=== PATIENT | female | born 1950 | race Caucasian/White ===

== ENCOUNTER 2016-09-30 10:52 | Inpatient (IN) ==
[2016-09-30] MEDS ORDERED: SODIUM CHLORIDE 0.9% 500 ML IV STA (11:14)
[2016-09-30] MEDS ORDERED: ONDANSETRON 4 MG/2 ML VIAL IV STA (11:14)
[2016-09-30] MEDS ORDERED: ASPIRIN 325 MG TABLET PO STA (11:14)
[2016-09-30] MEDS ORDERED: MECLIZINE 25 MG TABLET PO STA (11:17)
--- NOTE | 2016-09-30 11:17 | Emergency Department Note ---
Ahsan Harmon Brooke, am scribing for, and in the presence of, Kavon Kelley MD 11 :15. Warren Harmon Charles R, MD, personally performed the services described in this documentation, ascribed by Noemi Foreman in my presence, and it is both accurate and complete . Arrival - Arrival Chief Complaint: Neuro ED Nursing Triage Note: pt was in the shower about 0900 this am and felt like lt leg was not going to hold her up and lt facial numbness and dizzy Mode of Arrival: Stretcher Limitations: No Limitations Source: Patient, EMS, RN Notes Reviewed Time Seen by Provider: 09/30/16 11:04 - History of Present Illness HPI Narrative: Patient is a 65 year old female who presents to the ED with c/o numbness/ tingling to left side of face, lightheadedness, and dizziness that started, suddenly, while in the shower around 0900 this morning. Patient says the numbness/tingling started in her left jaw and then went up into her temporal. She says she had a "pressure" feeling in the temporal but denies having a headache. She denies having any numbness/tingling to her arms or legs but says she had a "strange feeling" in her legs, earlier, but says they feel "fine" now. Patient says she does not feel confused and denies having any visual disturbances. She says she has never experienced "this feeling" in the past. She says she was not outside, in the heat, yesterday and says her urine is not dark. She says she did pull a tick off of the left side of her head but she says it was not attached. I looked at her head and there is no bite lacy. Patient has PMHx of "slow heart," GERD, and osteoporosis. Onset (ago): hour(s) (2) Review of System - Review of System 12 point system: reviewed and no additional remarkable complaints except as stated - Review of System Constitutional: Absent: fever Eyes: Absent: vision change Respiratory: Absent: respiratory distress Skin: Absent: rash Neurological: Present: other (numbness/tingling left side of face that started in jaw and radiated up into temporal. "Pressure" to left temporal. Dizziness and lightheadedness.). Absent: headache Medical,Surgical,& Family Hx - Medical History Cardio: History of: Cardiovascular Problems (slow heart) Gastrointestinal: History of: GERD Musculoskeletal: History of: Osteoporosis - Social History Smoking Status: Never smoker Frequency of Alcohol Use: None Type of Drug Use: None Exam Vital Signs: Vital Signs Temperature 97.1 F L 09/30/16 10:55 Pulse Rate 57 L 09/30/16 10:55 Respiratory Rate 18 09/30/16 10:55 Blood Pressure 147/80 09/30/16 10:55 O2 Sat by Pulse Oximetry 100 09/30/16 10:55 - General General appearance: alert, in no apparent distress - Head Head exam: Present: atraumatic, normocephalic - Eye Eye exam: Present: nystagmus (Horizontal that is faster when sitting up.) - ENT ENT exam: Present: normal exam - Neck Neck exam: Present: normal inspection - Chest Chest inspection: Present: normal inspection, symmetric chest wall rise - Respiratory Respiratory exam: Present: normal lung sounds bilaterally - Cardiovascular Cardiovascular exam: Present: normal rhythm, bradycardia (normal for Patient), normal heart sounds - Abdominal Exam Abdominal exam: Present: soft, normal bowel sounds. Absent: distention, tenderness - Extremities Exam Extremities exam: Present: normal inspection - Back Exam Back exam: Present: normal inspection - Neurological Exam Neurological exam: Present: alert, oriented X3, CN II-XII intact, other (Weird sensation to left mid jaw to hairline. No facial droop. No signs of CVA. Globally weak.) - Psychiatric Psychiatric exam: Present: normal affect, normal mood - Skin Skin exam: Present: warm, dry, intact, normal color Course - Consultations Consultation #1: Hospitalist will admit patient Time: 13:05 Results - Labs CBC & BMP: 09/30/16 11:51 09/30/16 11:51 Lab Results: I have reviewed the patients labs Labs: Laboratory Tests 09/30/16 09/30/16 09/30/16 11:48 11:48 11:51 WBC 4.6 RBC 4.34 Hgb 13.4 Hct 39.3 MCV 90.6 MCH 31 MCHC 34.1 RDW 13.7 Plt Count 147 MPV 12.0 Neut % (Auto) 54.7 Lymph % (Auto) 32.4 [place] % (Auto) 10.5 Eos % (Auto) 1.8 Baso % (Auto) 0.4 Neut # (Auto) 2.5 Lymph # (Auto) 1.5 [place] # (Auto) 0.5 Eos # (Auto) 0.1 Baso # (Auto) 0.0 Immature Gran % 0.2 Nucleated RBC % 0.0 Immature Gran # 0.01 Nucleated RBCs # 0.00 Immature Plt Fraction 0.0 INR PT Patient/Control Mix Circ Anticoag PTT Sodium Potassium Chloride Carbon Dioxide Anion Gap BUN Creatinine GFR Calculation BUN/Creatinine Ratio Glucose Calculated Osmolality Calcium Total Bilirubin AST ALT Alkaline Phosphatase Troponin I Total Protein Albumin Globulin Albumin/Globulin Ratio Urine Color Straw Urine Appearance Clear Urine pH 6.0 Ur Specific [place] 1.008 Urine Protein Negative Urine Glucose (UA) Negative Urine Ketones Negative Urine Blood Negative Urine Nitrate Negative Urine Bilirubin Negative Urine Urobilinogen < 2.0 H Urine Leukocytes Moderate H Urine RBC 4 Urine WBC 8 Ur Squamous Epith Cells Occasional Urine Mucus Occasional Ur Culture Indicated? Results to follow Urine Opiates Screen Negative Ur Barbiturates Screen Negative Ur Phencyclidine Scrn Negative U Amphetamine/Methamph Negative U Benzodiazepines Scrn Negative U Cocaine Metab Screen Negative U Cannabinoids Screen Negative Serum Alcohol 09/30/16 09/30/16 11:51 11:51 WBC RBC Hgb Hct MCV MCH MCHC RDW Plt Count MPV Neut % (Auto) Lymph % (Auto) [place] % (Auto) Eos % (Auto) Baso % (Auto) Neut # (Auto) Lymph # (Auto) [place] # (Auto) Eos # (Auto) Baso # (Auto) Immature Gran % Nucleated RBC % Immature Gran # Nucleated RBCs # Immature Plt Fraction INR 1.0 PT Patient/Control Mix 10.4 Circ Anticoag PTT 25.2 Sodium 140 Potassium 4.1 Chloride 109 H Carbon Dioxide 24 Anion Gap 11.1 BUN 18 Creatinine 0.70 GFR Calculation 98 BUN/Creatinine Ratio 25.00 H Glucose 102 Calculated Osmolality 280.4 Calcium 8.9 Total Bilirubin 0.50 AST 14 ALT 18 Alkaline Phosphatase 63 Troponin I < 0.015 Total Protein 6.1 L Albumin 3.4 Globulin 2.7 Albumin/Globulin Ratio 1.2 Urine Color Urine Appearance Urine pH Ur Specific [place] Urine Protein Urine Glucose (UA) Urine Ketones Urine Blood Urine Nitrate Urine Bilirubin Urine Urobilinogen Urine Leukocytes Urine RBC Urine WBC Ur Squamous Epith Cells Urine Mucus Ur Culture Indicated? Urine Opiates Screen Ur Barbiturates Screen Ur Phencyclidine Scrn U Amphetamine/Methamph U Benzodiazepines Scrn U Cocaine Metab Screen U Cannabinoids Screen Serum Alcohol < 15 L - Diagnostic Findings Procedure: Chest x-ray: report reviewed by me (Mild cardiomegaly.), CT: report reviewed by me (CT head/brain wo con: No acute intracranial process.) Disposition Clinical Impression: Transient cerebral ischemia, UTI (urinary tract infection), Vertigo Case discussed with: patient, patient's family Disposition: Still a Patient Condition: Stable Time of Disposition: 13:05 NIH Stroke Score - Stroke Score Initial Assessment Level of Consciousness: Alert Level of Consciousness Questions: Answers Both Correctly Level of Consciousness Commands: Obeys Both Correctly Best Gaze: Normal Visual [place]: No Visual Loss Facial Palsy: Normal Motor - Right Arm: No Drift Motor - Left Arm: No Drift Motor - Right Leg: No Drift Motor - Left Leg: No Drift Limb Ataxia: Absent Sensory (Pin [place]rick): Partial Loss Best Language: Normal Dysarthria: Normal Extinction / Inattention (Neglect): No Neglect NIH Stroke Score: 1
[2016-09-30] MEDS ORDERED: ONDANSETRON 4 MG/2 ML VIAL ONE (11:36)
[2016-09-30] MEDS ORDERED: MECLIZINE 25 MG TABLET ONE (11:36)
[2016-09-30] MEDS ORDERED: ASPIRIN 325 MG TABLET ONE (11:36)
--- NOTE | 2016-09-30 11:40 | XRay Report ---
Portable chest. Indication: Cardiomegaly. The heart is mildly enlarged with left ventricular hypertrophy. There is calcific plaque present within the aortic knob. The pulmonary vasculature is normal. The lung carmichael are clear. Osseous structures are unremarkable. Impression: Mild cardiomegaly. PROCEDURE INTERPRETED AT [facility] DEPARTMENT OF RADIOLOGY Final Report Signed by: Dr. Josselyn Davalos
--- NOTE | 2016-09-30 11:43 | CT Report ---
History: Hemiparesis Date: 09/30/2016 Study: CT head without contrast Comparison exam: No previous head CT available The exam was performed on an outpatient basis through the emergency room. Transaxial CT sections were obtained through the head without IV contrast. Total DLP measures 1012.1 mGy*cm. This CT exam was performed using one or more the following dose reduction techniques: Automated exposure control, adjustment of the MA and/or KV according to patient size, or use of iterative reconstruction technique. The ventricles are midline in position without evidence of hydrocephalus. There is no mass or parenchymal hemorrhage. There is no gross CT evidence of acute cortical stroke. There is no extra-axial hematoma. There is no acute abnormality of the calvarium. The partially visualized paranasal sinuses and mastoid air cells are clear. Impression: No acute intracranial process PROCEDURE INTERPRETED AT [facility] DEPARTMENT OF RADIOLOGY Final Report Signed by: Dr. Luz Peterson
[2016-09-30 11:53] LABS: Basophils % 0.4 % (0.0-0.8); Eosinophils # 0.1 10*3/uL (0.0-0.87); Eosinophils % 1.8 % (0.00-10.9); Hematocrit 39.3 VOL% (35.7-47.0); Hemoglobin 13.4 GM/DL (12.0-16.0); Immature Granulocytes % 0.2 %; Immature Granulocytes Absolute 0.01 #; Lymphocytes # 1.5 10*3/uL (1.4-4.0); Lymphocytes % 32.4 % (21.3-54.2); Mean Corpuscular HGB Conc 34.1 GM/DL (32-36); Mean Corpuscular Hemoglobin 31 PG (27-34); Mean Corpuscular Volume 90.6 FL (87-102); Monocytes # 0.5 10*3/uL (0.11-0.8); Monocytes % 10.5 % (1.7-12.7); Neutrophils # 2.5 10*3/uL (1.4-7.4); Neutrophils % 54.7 % (38.7-73.9); Platelet Count 147 T/CUMM (130-400); Red Blood Count 4.34 MC/CUMM (3.8-5.5); Red Cell Distribution Width 13.7 % (9.3-17.3); White Blood Count 4.6 T/CUMM (4-12)
[2016-09-30 12:11] LABS: PT Patient Result 10.4 SECS; Partial Thromboplastin Time 25.2 SECS (0-40)
[2016-09-30 12:11] LABS: Apearance,Urine CLEAR (Clear); Bilirubin,Urine Negative (Negative); Blood, Urine Negative (Negative); Glucose,Urine (UA) Negative (Negative); Ketones,Urine Negative (Negative); Mucus,Urine Occasional /LPF (Occasional); Nitrite,Urine Negative (Negative); Protein,Urine Negative; RBC,Urine 4 /HPF (0-4); Squamous Epithelial Cell,Urine Occasional /HPF (0-10); Urine Color Straw (Yellow); Urine Specific Gravity 1.008 (1.001-1.035); Urine Urobilinogen < 2.0 EU/DL (0.2-1.0); WBC,Urine 8 /HPF (0-6)
[2016-09-30 12:18] LABS: Barbiturates Screen,Urine Negative (Negative); Benzodiazepines Screen,Urine Negative (Negative); Cannabinoid Screen,Urine Negative (Negative); Opiate Screen,Urine Negative (Negative); Phencyclidine Screen,Urine Negative (Negative)
[2016-09-30 12:19] LABS: Alanine Aminotransferase 18 U/L (13-56); Albumin 3.4 G/DL (3.4-5.0); Alkaline Phosphatase 63 U/L (45-117); Aspartate Amino Transferase 14 U/L (0-37); Blood Urea Nitrogen 18 MG/DL (7-18); Calcium 8.9 MG/DL (8.5-10.1); Glucose 102 MG/DL (74-106); Osmolality,Calculated 280.4 MOS/KG (273-304); Potassium 4.1 MMOL/L (3.5-5.1); Sodium 140 MMOL/L (136-145); Total Protein 6.1 G/DL (6.4-8.3); Troponin I Only < 0.015 NG/ML (0.00-0.045)
[2016-09-30] MEDS ORDERED: cefTRIAXone 1,000 MG in SODIUM CHLORIDE 0.9% 100 ML IV STA (12:54)
--- NOTE | 2016-09-30 13:07 | EKG Report ---
Stationary ECG Study [facility] ER Test Date: 09/30/2016 1:05:30 PM Pat Name: RAVEN AKINS Department: Room: Gender: F Junior Data Analyst: : 1950 Requested by: Kavon Phillips Order Number: [id number] Reading MD: ARIEL YU Intervals [place] Rate: 51 P: 50 RI: 135 QRS: 0 QRSD: 84 T: 7 QT: 438 QTc: 413 Interpretive Statements SINUS BRADYCARDIA LOW QRS VOLTAGE IN PRECORDIAL LEADS POSSIBLE ANTERIOR MYOCARDIAL INFARCTION, PROBABLY OLD INFERIOR MYOCARDIAL INFARCTION, PROBABLY OLD Electronically Signed On 09-30-16 15:54:33 CDT by ARIEL YU [email or web address]
[2016-09-30] MEDS ORDERED: LABETALOL 20 MG/4 ML SYRINGE IV PRN (13:37)
[2016-09-30] MEDS ORDERED: cefTRIAXone 1,000 MG VIAL ONE (13:51)
[2016-09-30] MEDS ORDERED: guaiFENesin/DM ER 600-30 MG TABLET PO PRN (13:56)
[2016-09-30] MEDS ORDERED: DOCUSATE SODIUM 100 MG CAPSULE PO PRN (13:56)
[2016-09-30] MEDS ORDERED: ACETAMINOPHEN 325 MG TABLET PO PRN ×2 (13:56)
[2016-09-30] MEDS ORDERED: ONDANSETRON 4 MG/2 ML VIAL IV PRN (13:56)
[2016-09-30] MEDS ORDERED: ZALEPLON 5 MG CAPSULE PO PRN (13:56)
[2016-09-30] MEDS ORDERED: MORPHINE 2 MG/1 ML SYRINGE IV PRN (13:56)
[2016-09-30] MEDS ORDERED: diphenhydrAMINE CAP 25 MG CAPSULE PO PRN (13:56)
--- NOTE | 2016-09-30 14:06 | Hospitalist History & Physical ---
Assessment and Plan - Time spent with patient Time spent with patient: Greater than 30 minutes (1) TIA (transient ischemic attack) Status: Acute Assessment and plan: 65-year-old white female with history of GERD, low back pain, gastric bypass admitted by the hospitalist service from the emergency department with TIA/ stroke symptoms and UTI. Patient's numbness on her left face and left leg have resolved but patient continues to have symptoms of vertigo and cannot stand up due to this. Patient will be admitted and stroke protocol has been initiated. Will get an echo, carotid ultrasound, TSH, lipid panel, MRI of the brain. Will consult Dr. Galloway from neurology for evaluation. We will go ahead and get PT and OT to evaluate. Do not feel patient needs speech at this time. Patient will also be started on Rocephin for her urinary tract infection. She is asymptomatic. Dr. Rivera we will see and examine patient and further recommendations to follow. Current Visit: Yes (2) UTI (urinary tract infection) Status: Acute Current Visit: Yes (3) Vertigo Status: Acute Current Visit: Yes History of Present Illness Chief complaint: Dizziness History of present illness: Ms. Brantley is a 65 year old white female with history of GERD, osteoporosis, low back pain, gastric bypass presenting to the ED with a 5 hour history of acute onset of dizziness, left facial numbness and left lower extremity numbness. Patient states she was in her normal state of health until about 9:00 this morning when she started to feel dizzy. She states her head began to swim and she felt like she was going to fall down. She noted some numbness on her left face and some pressure in her gnosticism. She states she sat down and it subsided but then when she went to walk she had heaviness and numbness of her left lower extremity. Patient states that she felt like she could not control her leg. She states the numbness in the face and leg have resolved but she is still dizzy intermittently. She is afebrile, bradycardic with her pulse in the mid 50s, and mildly hypertensive at 147/80. Her CBC and CMP are normal. Her UA does show a moderate UTI and drug screen is negative. Chest x-ray is negative, CT scan with no acute intracranial process, her EKG showing sinus bradycardia. Upon exam, patient is awake and alert. Her neuro exam is normal and equal bilaterally. Her extraocular movements are intact and her tongue is midline. Patient could not stand though as soon as her head came up off the pillow she became dizzy and got nauseated. After discussion with Dr. Kelley the ED physician and Dr. Rivera the admitting hospitalist, it was agreed patient would be admitted for further evaluation and treatment. Patient's medications will be reconciled once entered into the system and patient is a full code. Medical,Surgical,& Family Hx - Medical History Cardio: History of: Cardiovascular Problems (slow heart) Gastrointestinal: History of: GERD Musculoskeletal: History of: Osteoporosis - Surgical History Abdominal Surgeries: Surgical HX of: Appendectomy, Cholecystectomy - Family History Family History: Reports;: Family Heart Disease - Social History Smoking Status: Never smoker Frequency of Alcohol Use: None Type of Drug Use: None Marital Status: Single Lives With:: Alone Functional capacity: independent ambulation Review of systems: A complete 10 system review of systems was obtained and pertinent positives and negatives per HPI Exam - Constitutional Vitals: Period Temp Pulse Resp BP Sys/Gibbons Pulse Ox Last 24 Hr 97.1 F-97.1 F 57-57 18-18 147-147/80-80 100 Exam: Constitutional System: No distress. No tremulousness. Head: Normocephalic, atraumatic. Ears, Nose and Throat System: No evidence of Otitis or Mastoiditis. No epistaxis or discharge, tongue midline Eyes System: Pupils equal, round, and reactive. Extraocular muscles intact. No nystagmus Neck: Supple, without adenopathy, No jugular venous distention. No thyromegaly, neck mass, or prior surgery apparent. Respiratory System: Chest clear to auscultation. Cardiovascular System: Heart with bradycardic rate and rhythm. No murmur. GI System: Abdomen soft, nontender. Normo active bowel sounds present. Musculoskeletal System: limbs with no pedal edema. Full distal pulses, normal sensation bilaterally upper and lower extremities, normal motor bilaterally upper and lower extremities, strength equal bilaterally 5/5 lower extremities but upper extremity equal bilaterally at 4/5 Neurological System: No discernable sensory deficit. No aphasia, could not test in standing due to dizziness and nausea Psychiatric System: Conversation is rational Results - Labs CBC & BMP: 09/30/16 11:51 09/30/16 11:51 Lab Results: I have reviewed the past 24 hour labs - EKG EKG results: sinus rhythm EKG shows: bradycardia - Diagnostic Findings Procedure: Chest x-ray: report reviewed by me (Mild cardiomegaly), CT: report reviewed by me (CT the head shows no acute intracranial process)
[2016-09-30 14:16] LABS: Risk Ratio 3.76; VLDL CHOLESTEROL 20.6 MG/DL
--- NOTE | 2016-09-30 14:35 | ECHO Report ---
Sondra Brantley Exam Date: 09/30/2016 14:08 Referring Physician: Technologist: Age: 65 Ht (in): Wt (lb): Gender: F Exam Location: [facility] Echo Indications: BP: / HR: Rhythm: Sinus Technical Quality: Good IMPRESSIONS The overall ejection fraction is 60% with no regional wall motion abnormality. Diastolic parameters are most consistent with grade 1 diastolic dysfunction or impaired relaxation. Mild right atrial and right ventricular enlargement MEASUREMENTS (Male / Female) Normal Values 2D ECHO LV Diastolic Diameter PLAX 4.2 cm 4.2 - 5.9 / 3.9 - 5.3 cm LV Systolic Diameter PLAX 2.0 cm LV Fractional Shortening PLAX 50.7 % IVS Diastolic Thickness 0.8 cm 0.6 - 1.0 / 0.6 - 0.9 cm LVPW Diastolic Thickness 0.9 cm 0.6 - 1.0 / 0.6 - 0.9 cm Aortic Root Diameter 2.7 cm LA Systolic Diameter LX 3.5 cm 3.0 - 4.0 / 2.7 - 3.8 cm FINDINGS Left Ventricle The overall ejection fraction is 60% with no regional wall motion abnormality. Diastolic parameters are most consistent with grade 1 diastolic dysfunction or impaired relaxation Right Ventricle Right ventricular cavity slightly enlarged Right Atrium Right atrium slightly enlarged Left Atrium Left atrium is normal Mitral Valve Mitral valve is normal Aortic Valve Aortic valve is normal there is no stenosis or regurgitation Tricuspid Valve Tricuspid valve is normal. There is no measurable tricuspid regurgitant velocity Pulmonic Valve Pulmonic valve is normal Pericardium Pericardium is unremarkable and there is no pericardial effusion Aorta Visualized portions thoracic aorta is normal. Vandana Mendoza (Electronically Signed) Final Date: 30 September 2016 14:34
--- NOTE | 2016-09-30 15:09 | Ultrasound Report ---
CAROTID ULTRASOUND Comparison: Dizziness. Facial and leg numbness, side not specified. . Findings: Grayscale, color Doppler and pulsed Doppler interrogation of the carotid and vertebral arteries performed. Severity of stenosis based on flow velocity measurements using NASCET criteria. Ultrasound images are captured and stored. Distal right ICA diameter: 4.3 mm Distal left ICA diameter: 5.0 mm Peak systolic flow velocities in centimeters per second are as follows: Right: CCA: 66 Proximal ICA: 67 Distal ICA: 81 ICA/CCA ratio: 1.2 Left: CCA: 77 Proximal ICA: 96 Distal ICA: Obscured ICA/CCA ratio: 1.2 External carotid arteries: Both are patent with antegrade flow. Vertebral arteries: Both are patent with antegrade flow. Grayscale and color Doppler images: Only minimal focal plaque deposition identified, with normal color Doppler flow present. Pulse Doppler waveform interrogation: No significant spectral broadening. Impression: No hemodynamically significant stenosis of either ICA origin. PROCEDURE INTERPRETED AT [facility] DEPARTMENT OF RADIOLOGY Final Report Signed by: Ryan Lam M.D.
--- NOTE | 2016-09-30 17:26 | Magnetic Resonance Report ---
History: Numbness and tingling left face. Dizziness Date: 09/30/2016 Study: MRI head without contrast Comparison exam: No previous MRI head The brain was imaged in 3 planes on the 1.5 Meryl magnet without IV contrast, to include FLAIR, diffusion, T2, gradient echo, and T1-weighted images. There is no Chiari I malformation. There is no gross pituitary mass. There is no evidence of acute ischemia on the diffusion sequence. There is no mass affect or parenchymal hemorrhage. There is a small amount of patchy increased FLAIR and T2 signal in the periventricular white matter without mass effect compatible with changes of small vessel disease. There is a normal flow void in the the superior sagittal sinus. There is no gross flow abnormality in the [place] area. There is no obvious cerebellopontine angle mass. Impression: No evidence of acute ischemia or parenchymal hemorrhage. Chronic periventricular small vessel disease PROCEDURE INTERPRETED AT [facility] DEPARTMENT OF RADIOLOGY Final Report Signed by: Dr. Luz Peterson
[2016-09-30] MEDS: SODIUM CHLORIDE 0.9% 1,000 ML IV SCH (17:42)
[2016-09-30] MEDS: PANTOPRAZOLE 40 MG TABLET PO SCH (17:43)
[2016-10-01] MEDS: SODIUM CHLORIDE 0.9% 1,000 ML IV SCH ×3 (00:07→15:43)
[2016-10-01 06:26] LABS: Basophils % 0.5 % (0.0-0.8); Eosinophils # 0.2 10*3/uL (0.0-0.87); Eosinophils % 3.9 % (0.00-10.9); Hematocrit 37.7 VOL% (35.7-47.0); Hemoglobin 12.6 GM/DL (12.0-16.0); Immature Granulocytes % 0.2 %; Immature Granulocytes Absolute 0.01 #; Lymphocytes # 1.5 10*3/uL (1.4-4.0); Lymphocytes % 37.5 % (21.3-54.2); Mean Corpuscular HGB Conc 33.4 GM/DL (32-36); Mean Corpuscular Hemoglobin 31 PG (27-34); Mean Platelet Volume 11.9 FL (9.6-12.0); Monocytes # 0.4 10*3/uL (0.11-0.8); Monocytes % 9.1 % (1.7-12.7); Neutrophils % 48.8 % (38.7-73.9); Platelet Count 140 T/CUMM (130-400); Red Cell Distribution Width 13.8 % (9.3-17.3); White Blood Count 4.1 T/CUMM (4-12)
[2016-10-01 07:00] LABS: Calcium 8.1 MG/DL (8.5-10.1); Osmolality,Calculated 289.6 MOS/KG (273-304)
[2016-10-01] MEDS: PANTOPRAZOLE 40 MG TABLET PO SCH (09:29)
--- NOTE | 2016-10-01 11:50 | Hospitalist Progress Note ---
<Keiry Ellis - Last Filed: 10/01/16 11:42> Assessment and Plan - Time spent with patient Time spent with patient: Less than 30 minutes (1) TIA (transient ischemic attack) Status: Acute Assessment and plan: Patient denies any further symptoms or weaknesses. She verbalized able to ambulate to the bathroom without any problems. Smile was equal without any noted drooping to face or eyes, no tongue deviation noted. She denies any numbness, dizziness, SOB, or difficulty with eating or swallowing. Carotid showed No hemodynamically significant stenosis of either ICA origin. MRI: No evidence of acute ischemia or parenchymal hemorrhage; chronic periventricular small vessel disease. Echo: IMPRESSIONS The overall ejection fraction is 60% with no regional wall motion abnormality. Diastolic parameters are most consistent with grade 1 diastolic dysfunction or impaired relaxation. Mild right atrial and right ventricular enlargement. Neurology was consulted and appreciate any further recommendations with care. Current Visit: Yes (2) UTI (urinary tract infection) Status: Acute Assessment and plan: Continue Rocephin. Will DC maintenance fluids(BUN 14 and Creatinine 0.70). Awaiting final urine culture. Will repeat a.m. labs. Current Visit: Yes (3) Hypercholesteremia Status: Acute Assessment and plan: Slight elevation of Cholesterol 233. triglycerides 103; LDL 141.0; HDL 62. Current Visit: Yes Hospitalist: Subjective Interval history: Ms Brantley was seen and chart reviewed. She reports feeling better this morning. She reports able to ambulate to the bathroom without any problems. Face and extremities continues to be symmetrical. She denies any weakness or numbness to extremities. She denies chest pain, shortness of breath, fever, chills, or dizziness. Exam - Constitutional Vitals: Period Temp Pulse Resp BP Sys/Gibbons Pulse Ox Last 24 Hr 97.1 F-98.8 F 51-56 14-22 111-158/63-89 97-98 General appearance: normal weight - Head Head exam: Present: normal inspection - Eye Eye exam: Present: EOMI Pupils: Present: ROBERT - ENT ENT exam: Present: normal exam, other (no noted droop to either side of face; speech is clear; able to swallow without any discomfort; denies getting choked when eating) - Neck Neck exam: Present: normal inspection - Respiratory Respiratory exam: Present: clear to auscultation bilaterally. Absent: rhonchi, stridor, wheezes - Cardiovascular Cardiovascular exam: Present: regular rate and rhythm - GI/Abdominal GI/Abdominal exam: Present: normal bowel sounds, soft. Absent: tenderness, rebound - Extremities Exam Extremities exam: Present: normal inspection, full ROM. Absent: edema - Neurological Exam Neurological exam: Present: alert, oriented X3, CN II-XII intact - Psychiatric Psychiatric exam: Present: normal affect, normal mood. Absent: agitated, anxious - Skin Skin exam: Present: normal color, warm, dry Results - Labs CBC & BMP: 10/01/16 06:13 10/01/16 06:13 Lab Results: I have reviewed the past 24 hour labs <Betty Leavitt - Last Filed: 10/01/16 14:07> Hospitalist: Subjective Interval history: Patient seen, she states dizziness has improved.She feels much better. Hopefully , she will go home in am. We will start Lipitor. Exam - Constitutional Vitals: Period Temp Pulse Resp BP Sys/Gibbons Pulse Ox Last 24 Hr 97.1 F-98.8 F 51-56 - 111-158/63-85 96-98 Results - Labs CBC & BMP: 10/01/16 06:13 10/01/16 06:13
[2016-10-01] MEDS: cefTRIAXone 1,000 MG in SODIUM CHLORIDE 0.9% 100 ML IV SCH (14:00)
--- NOTE | 2016-10-01 14:52 | Neurology Consult Note ---
History of Present Illness History of present illness: Ms. Brantley is a 65 year old right-handed white lady with history of GERD, osteoporosis, low back pain, gastric bypass presenting to the ED with a 5 hour history of acute onset of dizziness. Patient reported that somewhat whole room was spinning around her. She has some nausea but no vomiting. She has never had any similar symptoms before. No history of stroke. She has been taking aspirin every day. She is doing fine now. No more symptoms reported. MRI of the brain reveals no acute abnormalities. Carotid ultrasound is unremarkable. Cholesterol is still slightly high. Echo looks okay Home Medications Medication Instructions Recorded Confirmed Type Methocarbamol Tab [Robaxin Tab] 750 mg TID 09/30/16 09/30/16 History Ranitidine Tab [Zantac Tab] 150 mg DAILY 09/30/16 09/30/16 History Tizanidine HCl 2 mg BEDTIME PRN 09/30/16 09/30/16 History Allergies Allergy/AdvReac Type Severity Reaction Status Date / Time Penicillins Allergy Verified 09/30/16 15:14 12 point system: reviewed and no additional remarkable complaints except as stated Medical,Surgical,& Family Hx - Medical History Cardio: History of: Cardiovascular Problems (slow heart) Psychological: No history of: Anxiety Disorders, ADHD, Behavior Problems, Bipolar Disorder, Depression, Previous Suicide Attempt, Psychiatric/Substance Abuse Tx, Schizophrenia, Violent Behavior, Psychiatric Problems Gastrointestinal: History of: GERD Musculoskeletal: History of: Osteoporosis - Surgical History Abdominal Surgeries: Surgical HX of: Appendectomy, Cholecystectomy, Gastric Bypass Surgery Reproductive Surgeries: Surgical HX of;: Hysterectomy - Family History Family History: Reports;: Family Heart Disease - Social History Smoking Status: Never smoker Frequency of Alcohol Use: None Type of Drug Use: None Exam - Constitutional Vitals: Period Temp Pulse Resp BP Sys/Gibbons Pulse Ox Last 24 Hr 97.1 F-98.8 F 51-56 16-22 111-158/63-85 96-98 Exam: GENERAL: Patient is in no acute distress. NECK: Neck is supple. There is no JVD. No carotid bruits present. No thyroid masses. CVS: First and second heart sounds are normal. There is no S3 present. Regular rate and rhythm. RESPIRATORY: Lungs are clear to auscultation without any rales or rhonchi. ABDOMEN: Soft and non-tender. Bowel sounds are present. There is no hepatosplenomegaly. EXT: There is no palpable edema. Peripheral pulses are present. Skin: No rashes Central Nervous system: General: Alert, awake and Oriented x 3 Speech: Fluent Comprehension: Intact and normal Facial expressions: Normal Cranial Nerves: CN1/Olfactory: Normal CN II/ Optic: Normal, Visual Olguin unreliable CN III, and : ROBERT & EOMI CN V: Normal & intact CN VII: face is symmetric CNVIII: Normal CN XI/X/XI/XII: Intact and Normal Motor: Bulk and Tone is normal. Strength in the right 5/5 Strength in the left 5/5 Sensory: Grossly intact for all the modalities of PP, LT and temp sense Reflexes: 1+ and symmetrical Cerebellar function: Normal finger to nose and heel to fam testing. Toes: Equivocal Gait: Normal heel to heel and toe to toe and tandem walk. Results - Labs CBC & BMP: 10/01/16 06:13 10/01/16 06:13 Assessment and Plan (1) Acute labyrinthitis Status: Acute Assessment and plan: Sounded like acute labyrinthitis. However will do MRA [place] for the completion Continue Antivert as needed. Continue aspirin a day for now Thank you for the consult Current Visit: Yes
--- NOTE | 2016-10-01 17:35 | Magnetic Resonance Report ---
MR angio head wo con (COW) Indication: Facial numbness and dizziness. MR angiogram [place] Technique: 3-D [id number] MR angiographic noncontrast images of the [place] were obtained. 3-D vascular MIPS reconstructions are provided. Comparison: None. Findings: There is mild narrowing of the infundibular segment of both internal carotid arteries, estimated at less than 50%. This may be from atheromatous plaque. Both ICA are otherwise widely patent. FRITZ and MCA vascular territories are bilaterally symmetric. Basilar artery terminates in bilateral [employer]. The right [employer] also has a significant contribution from the right posterior communicating artery. No intracranial aneurysmal disease. No flow cut off. Impression: Mild narrowing of the infundibular segments of both ICA, likely from atheromatous disease. Otherwise negative MRA [place]. PROCEDURE INTERPRETED AT [facility] DEPARTMENT OF RADIOLOGY Final Report Signed by: Ryan Lam M.D.
[2016-10-01] MEDS ORDERED: ATORVASTATIN 10 MG TABLET PO SCH (21:00)
[2016-10-02] MEDS: cefTRIAXone 1,000 MG in SODIUM CHLORIDE 0.9% 100 ML IV SCH (01:56)
[2016-10-02 05:51] LABS: Basophils % 0.9 % (0.0-0.8); Eosinophils # 0.2 10*3/uL (0.0-0.87); Eosinophils % 3.2 % (0.00-10.9); Hematocrit 37.9 VOL% (35.7-47.0); Hemoglobin 12.7 GM/DL (12.0-16.0); Immature Granulocytes % 0.4 %; Immature Granulocytes Absolute 0.02 #; Lymphocytes # 1.7 10*3/uL (1.4-4.0); Lymphocytes % 37.1 % (21.3-54.2); Mean Corpuscular HGB Conc 33.5 GM/DL (32-36); Mean Corpuscular Hemoglobin 31 PG (27-34); Mean Corpuscular Volume 91.1 FL (87-102); Mean Platelet Volume 12.1 FL (9.6-12.0); Monocytes # 0.4 10*3/uL (0.11-0.8); Monocytes % 8.6 % (1.7-12.7); Neutrophils # 2.3 10*3/uL (1.4-7.4); Neutrophils % 49.8 % (38.7-73.9); Platelet Count 156 T/CUMM (130-400); Red Blood Count 4.16 MC/CUMM (3.8-5.5); Red Cell Distribution Width 13.6 % (9.3-17.3); White Blood Count 4.6 T/CUMM (4-12)
[2016-10-02 06:24] LABS: Calcium 8.3 MG/DL (8.5-10.1); Magnesium 2.4 MG/DL (1.8-2.4); Osmolality,Calculated 286.7 MOS/KG (273-304); Potassium 3.9 MMOL/L (3.5-5.1)
[2016-10-02] MEDS: PANTOPRAZOLE 40 MG TABLET PO SCH (08:55)
--- NOTE | 2016-10-02 09:50 | Discharge Summary ---
Hospital Course - Hospital Course Hospital Course: 65-year-old white female with history of GERD, osteoporosis, back pain, and gastric bypass presenting to the ED on 09/30/2016 with a acute onset of dizziness , left facial numbness and left lower extremity numbness. She was admitted for stroke workup and she was also found to have a UTI and was started on antibiotics. She had a CT of her head, carotid Dopplers, brain MRI, echo, and head MRA that were all negative. Dr. Galloway from neurology was consulted and he felt it was more an acute labyrinthitis. He recommended continuing her Antivert as needed and an aspirin a day for now. Patient feels well. She has had no dizziness and no problems ambulating. Her symptoms seem to have completely resolved. She will be discharged home with as needed Antivert and aspirin. She will need to follow-up with her primary care physician in 1-2 weeks. Complete discharge instructions were given to the patient. Care coordination, chart review, and completed discharge paperwork took approximately 32 minutes. - Time spent with patient Time with patient DS: Greater than 30 minutes Diagnosis - Discharge Diagnosis (1) TIA (transient ischemic attack) Status: Acute (2) UTI (urinary tract infection) Status: Acute (3) Vertigo Status: Acute Discharge Plan - Discharge Medications No Action Methocarbamol Tab [Robaxin Tab] 750 mg TID Tizanidine HCl 2 mg BEDTIME PRN PRN Reason: Pain Ranitidine Tab [Zantac Tab] 150 mg DAILY - Follow Up or Referral - Forms/Instructions Exam - Constitutional Vitals: Period Temp Pulse Resp BP Sys/Gibbons Pulse Ox Last 24 Hr 96.0 F-98.7 F 50-62 16-20 120-143/60-83 94-97 Discharge Results Procedures and tests throughout hospitalization: Pending Orders 10/01/16 14:24 Blood Culture Routine Labs on day of discharge: Labs from last 24 hours 10/02/16 10/02/16 05:36 05:35 WBC 4.6 RBC 4.16 Hgb 12.7 Hct 37.9 MCV 91.1 MCH 31 MCHC 33.5 RDW 13.6 Plt Count 156 MPV 12.1 H Neut % (Auto) 49.8 Lymph % (Auto) 37.1 Nelson % (Auto) 8.6 Eos % (Auto) 3.2 Baso % (Auto) 0.9 H Neut # (Auto) 2.3 Lymph # (Auto) 1.7 Nelson # (Auto) 0.4 Eos # (Auto) 0.2 Baso # (Auto) 0.0 Immature Gran % 0.4 Nucleated RBC % 0.0 Immature Gran # 0.02 Nucleated RBCs # 0.00 Immature Plt Fraction 0.0 Sodium 145 Potassium 3.9 Chloride 111 H Carbon Dioxide 26 Anion Gap 11.9 BUN 13 Creatinine 0.80 GFR Calculation 84 BUN/Creatinine Ratio 16.00 Glucose 86 Calculated Osmolality 286.7 Calcium 8.3 L Magnesium 2.4 DS: Provider Date of admission: 09/30/16 13:15 Primary care physician: . No PCP Attending physician on admission: Shankar Rivera MD Consults: 09/30/16 13:37 Consult to Case Mgmt/Social Srvs [CONS] Routine Reason for Case Mgmt/Social Srvs: Discharge Planning Consult to Occupational Therapy [CONS] Routine Reason for Occupational Therapy: Evaluate and Treat Consult Comment: Stroke Consult to Physical Therapy [CONS] Routine Reason for Physical Therapy: Evaluate and Treat Consult Comment: stroke 09/30/16 13:56 Consult to Physician [CONS] Routine Comment: dizziness, facial and leg numbness Consulting Provider: Dennis Galloway When should Consulting Provider be notified: Now Person Notified: CHRISTINA Date Notified: 09/30/16 Time Notified: 16:19 Consult Notification Comment: Discharging clinician: DEVANTE Delgado Expected date of discharge: 10/02/16
[2016-10-02 13:56] VITALS: BP 122/86
== END 2016-10-02 14:37 | disposition home or self-care (01) | DRG 149 ==
LOC: N.ED 10:52 → SUATTDRO 13:15 → N.EDINP 13:15 → N.5E 14:25
PROVIDERS: ADMIT Internal Medicine; ATTEND Internal Medicine